=== PATIENT | female | born 1970 | race Two or more races ===

== ENCOUNTER 2021-09-21 09:49 | Emergency (ER) | payer OTHER ==
[~2021-09-21] VITALS: Ht 157.5 cm; Wt 70.0 kg
[2021-09-21] MEDS ORDERED: ACETAMINOPHEN 500 MG TABLET PO ONE (11:15)
[2021-09-21] MEDS ORDERED: ONDANSETRON HCL 4 MG TABLET PO ONE (11:15)
[2021-09-21 12:42] VITALS: BP 130/88
== END 2021-09-21 13:45 | disposition home or self-care (01) ==
LOC: EMS 09:49
DX: S09.90XA Unspecified injury of head, initial encounter (principal); I10 Essential (primary) hypertension; R11.0 Nausea; R53.1 Weakness; W20.8XXA Other cause of strike by thrown, projected or falling object, initial encounter; Y93.89 Activity, other specified; Y92.89 Other specified places as the place of occurrence of the external cause; Y99.0 Civilian activity done for income or pay
CPT/HCPCS: 70450; 72125; 99284; Q0162